=== PATIENT | female | born 1935 | race Caucasian/White ===

== ENCOUNTER 2017-07-29 11:34 | Inpatient (IN) | payer MEDICARE, BC ==
[~2017-07-29] VITALS: Ht 157.5 cm; Wt 59.0 kg
[2017-07-29 12:13] LABS: BASOPHILS % 0.2 % (0.0-2.0); HEMATOCRIT. 38.3 % (36.0-48.0); HEMOGLOBIN. 13.1 g/dL (12.0-16.0); LYMPHOCYTES % 10.5 % (20.0-50.0); MEAN CORPUSCULAR HEMOGLOBIN 33.1 pg (28.0-32.0); MEAN CORPUSCULAR VOLUME 97.1 fL (81.0-99.0); MEAN PLATELET VOLUME 8.5 fl (7.4-10.4); MONOCYTES % 6.7 % (2.0-8.0); NEUTROPHILS % 82.6 % (40.0-76.0); PLATELET 130 x1000/uL (130-400); RED BLOOD CELL COUNT 3.95 mill/uL (4.2-5.4); RED CELL DISTRIBUTION WIDTH 13.9 % (11.6-14.6)
[2017-07-29 12:17] LABS: CHLORIDE 108 mEq/L (98-107)
[2017-07-29 12:18] LABS: INR 1.5; PROTHROMBIN TIME 15.9 sec (9.4-11.6)
[2017-07-29 12:22] LABS: ETHANOL BLOOD < 10 mg/dL
[2017-07-29 12:25] LABS: LDL CHOLESTEROL 43 mg/dL (5-100)
[2017-07-29] MEDS ORDERED: ASPIRIN 325MG EC TABLET PO ONE (13:15)
[2017-07-29 14:11] LABS: CLARITY URINE CLEAR (CLEAR); COLOR URINE YELLOW (YELLOW); KETONES URINE NEGATIVE (NEGATIVE); LEUKOCYTE ESTERASE URINE 2+ (NEGATIVE); NITRITE URINE NEGATIVE (NEGATIVE); OCCULT BLOOD URINE 1+ (NEGATIVE); PH URINE 7.5 (4.5-8.0); PROTEIN URINE 1+ (NEGATIVE); SPECIFIC GRAVITY URINE 1.021 (1.005-1.030)
[2017-07-29 14:33] LABS: *AMPHETAMINES SCREEN URINE NEGATIVE (NEGATIVE); *BARBITURATES SCREEN URINE NEGATIVE (NEGATIVE); *BENZODIAZEPINES SCREEN URINE NEGATIVE (NEGATIVE); *COCAINE SCREEN URINE NEGATIVE (NEGATIVE); METHADONE URINE SCREEN NEGATIVE (NEGATIVE)
[2017-07-29 14:34] LABS: CANNABINOID URINE SCREEN NEGATIVE (NEGATIVE); OPIATES URINE SCREEN NEGATIVE (NEGATIVE); PHENCYCLIDINE URINE SCREEN NEGATIVE (NEGATIVE)
[2017-07-29] MEDS ORDERED: ACETAMINOPHEN 650MG/20.3ML UDC GT PRN (16:15)
[2017-07-29] MEDS ORDERED: NA PHOS,M-B/NA PHOS,DI-BA ENEMA 118ML PR PRN (16:15)
[2017-07-29] MEDS ORDERED: ACETAMINOPHEN 325MG TABLET PO PRN (16:15)
[2017-07-29] MEDS ORDERED: MECLIZINE 12.5MG TABLET PO PRN (16:15)
[2017-07-29] MEDS ORDERED: DOCUSATE SODIUM 100MG CAPSULE PO PRN (16:15)
[2017-07-29] MEDS ORDERED: LORAZEPAM 2MG/ML CPJ IV PRN (16:15)
[2017-07-29] MEDS ORDERED: GUAIFENESIN 200MG/10ML SUGAR FREE UDC PO PRN (16:15)
[2017-07-29] MEDS ORDERED: IPRATROPIUM/ALBUTEROL 0.5-3(2.5)MG/3ML NEB INH PRN (16:15)
[2017-07-29] MEDS ORDERED: DIPHENHYDRAMINE 50MG/ML VIAL IV PRN (16:15)
[2017-07-29] MEDS ORDERED: HYDROCODONE/ACETAMINOPHEN 10/325MG TABLET PO PRN (16:15)
[2017-07-29] MEDS ORDERED: ACETAMINOPHEN 650MG SUPP PR PRN (16:15)
[2017-07-29] MEDS ORDERED: ONDANSETRON HCL 4MG/2ML VIAL IV PRN (16:15)
[2017-07-29] MEDS ORDERED: MAGNESIUM/ALUMINUM HYDROXIDE/SIMETHICONE 30ML UDC PO PRN (16:15)
[2017-07-29] MEDS ORDERED: HYDROCODONE/ACETAMINOPHEN 5/325MG TABLET PO PRN (16:15)
[2017-07-29 22:00] VITALS: BP 118/45
[2017-07-29] MEDS ORDERED: CARB25TA3 PO (22:39)
[2017-07-29] MEDS ORDERED: WARF2.5T47 PO (22:39)
[2017-07-29] MEDS ORDERED: PANT40TA4 PO (22:39)
[2017-07-29] MEDS ORDERED: BENA20TA77 MT (22:39)
[2017-07-29] MEDS ORDERED: AMLO2.5T2 MT (22:39)
[2017-07-29] MEDS ORDERED: RALO60TA13 MT (22:39)
[2017-07-29 23:21] VITALS: BP 118/45
[2017-07-30] VITALS: BP 105/51
[2017-07-30 04:00] VITALS: BP 123/63
[2017-07-30 06:07] LABS: BASOPHILS % 0.7 % (0.0-2.0); EOSINOPHILS % 1.7 % (0.0-5.0); HEMOGLOBIN. 12.3 g/dL (12.0-16.0); LYMPHOCYTES % 30.7 % (20.0-50.0); MEAN CORPUSCULAR HEMOGLOBIN 33.6 pg (28.0-32.0); MEAN PLATELET VOLUME 8.9 fl (7.4-10.4); MONOCYTES % 8.8 % (2.0-8.0); NEUTROPHILS % 58.1 % (40.0-76.0); PLATELET 105 x1000/uL (130-400); RED BLOOD CELL COUNT 3.67 mill/uL (4.2-5.4); RED CELL DISTRIBUTION WIDTH 14.1 % (11.6-14.6)
[2017-07-30 06:42] LABS: CHLORIDE 113 mEq/L (98-107)
[2017-07-30 07:17] LABS: PHOSPHORUS 2.6 mg/dL (2.5-4.9)
[2017-07-30 07:18] LABS: LDL CHOLESTEROL 38 mg/dL (5-100)
[2017-07-30 07:21] LABS: HDL CHOLESTEROL 64 mg/dL (40-59)
[2017-07-30 07:22] LABS: CREATINE KINASE MB FRACTION 8.7 ng/mL (0.5-3.6)
[2017-07-30 07:35] LABS: CREATINE KINASE 1109 IU/L (26-192)
[2017-07-30 08:00] VITALS: BP 123/54
[2017-07-30 08:47] LABS: FOLIC ACID (FOLATE) SERUM > 20.00 ng/mL (>5.38)
[2017-07-30 08:58] LABS: VITAMIN B12 SERUM > 2000.0 pg/mL (211-911)
[2017-07-30 10:03] LABS: AMMONIA 21 uMol/L (<32)
[2017-07-30 12:00] VITALS: BP 133/68
[2017-07-30] MEDS ORDERED: WARFARIN SODIUM 5MG TABLET PO NR (18:00)
[2017-07-30 20:00] VITALS: BP_SYST 124; BP_SYST 129; BP_SYST 136; BP_DIAS 54; BP_DIAS 56; BP_DIAS 63
[2017-07-30 20:15] LABS: INR 1.9; PROTHROMBIN TIME 19.9 sec (9.4-11.6)
[2017-07-30] MEDS: ENOXAPARIN 60MG/0.6ML SYR SUBCUT SCH (21:42)
[2017-07-31] VITALS: BP 127/62
[2017-07-31 04:00] VITALS: BP 126/54
[2017-07-31] MEDS: ENOXAPARIN 60MG/0.6ML SYR SUBCUT SCH (06:41)
[2017-07-31 07:06] LABS: INR 2.3; PROTHROMBIN TIME 23.8 sec (9.4-11.6)
[2017-07-31 07:23] LABS: BASOPHILS % 0.6 % (0.0-2.0); EOSINOPHILS % 2.5 % (0.0-5.0); HEMATOCRIT. 37.3 % (36.0-48.0); HEMOGLOBIN. 12.7 g/dL (12.0-16.0); LYMPHOCYTES % 25.7 % (20.0-50.0); MEAN CORPUSCULAR HEMOGLOBIN 33.4 pg (28.0-32.0); MEAN CORPUSCULAR VOLUME 97.9 fL (81.0-99.0); MEAN PLATELET VOLUME 8.9 fl (7.4-10.4); MONOCYTES % 9.7 % (2.0-8.0); NEUTROPHILS % 61.5 % (40.0-76.0); PLATELET 115 x1000/uL (130-400); RED BLOOD CELL COUNT 3.81 mill/uL (4.2-5.4)
[2017-07-31 07:45] LABS: CHLORIDE 112 mEq/L (98-107)
[2017-07-31 07:59] LABS: PHOSPHORUS 2.2 mg/dL (2.5-4.9)
[2017-07-31 08:00] VITALS: BP 153/53
[2017-07-31 11:00] LABS: INR 2.5; PROTHROMBIN TIME 26.4 sec (9.4-11.6)
[2017-07-31 12:00] VITALS: BP 129/59
[2017-07-31] MEDS ORDERED: WARFARIN SODIUM 2.5MG TABLET PO SCH (18:00)
[2017-07-31] MEDS ORDERED: WARFARIN SODIUM 3MG TABLET PO SCH (18:00)
[2017-07-31] MEDS ORDERED: WARFARIN SODIUM 4MG TABLET PO SCH (18:00)
[2017-07-31 20:16] VITALS: BP 131/56
[2017-08-01 00:10] VITALS: BP 136/55
[2017-08-01 04:50] VITALS: BP 143/70
[2017-08-01 07:01] LABS: BASOPHILS % 0.7 % (0.0-2.0); EOSINOPHILS % 0.8 % (0.0-5.0); HEMATOCRIT. 36.1 % (36.0-48.0); HEMOGLOBIN. 12.5 g/dL (12.0-16.0); INR 2.7; LYMPHOCYTES % 24.7 % (20.0-50.0); MEAN CORPUSCULAR HEMOGLOBIN 33.5 pg (28.0-32.0); MEAN CORPUSCULAR VOLUME 96.9 fL (81.0-99.0); MEAN PLATELET VOLUME 8.7 fl (7.4-10.4); MONOCYTES % 9.6 % (2.0-8.0); NEUTROPHILS % 64.2 % (40.0-76.0); PLATELET 111 x1000/uL (130-400); PROTHROMBIN TIME 28.1 sec (9.4-11.6); RED BLOOD CELL COUNT 3.73 mill/uL (4.2-5.4); RED CELL DISTRIBUTION WIDTH 13.8 % (11.6-14.6)
[2017-08-01 07:28] LABS: CHLORIDE 111 mEq/L (98-107)
[2017-08-01 07:49] LABS: PHOSPHORUS 2.2 mg/dL (2.5-4.9)
[2017-08-01 07:53] LABS: CREATINE KINASE 416 IU/L (26-192)
[2017-08-01 08:00] VITALS: BP 130/62
[2017-08-01 12:00] VITALS: BP 139/67
[2017-08-01 16:45] VITALS: BP 111/51
[2017-08-01] MEDS ORDERED: WARFARIN SODIUM 2.5MG TABLET PO SCH (18:00)
== END 2017-08-01 18:00 | disposition home health service (06) | DRG 64 ==
LOC: ER 11:44 → 6WST 13:16 → EDBEDREQSVC 13:23 → EDBEDREQTM 13:23 → EDBEDREQ 13:23 → ENRESERV 20:03
PROVIDERS: ADMIT Internal Medicine; ATTEND Internal Medicine
DX: I63.9 Cerebral infarction, unspecified (principal); G92 Toxic encephalopathy; G81.91 Hemiplegia, unspecified affecting right dominant side; G20 Parkinson's disease; I48.0 Paroxysmal atrial fibrillation; H53.461 Homonymous bilateral field defects, right side; M62.82 Rhabdomyolysis; E11.9 Type 2 diabetes mellitus without complications; R47.01 Aphasia; I10 Essential (primary) hypertension; R29.810 Facial weakness; R79.1 Abnormal coagulation profile; R26.9 Unspecified abnormalities of gait and mobility; R47.1 Dysarthria and anarthria; W18.39XA Other fall on same level, initial encounter; Z79.01 Long term (current) use of anticoagulants; Y93.89 Activity, other specified; Y92.89 Other specified places as the place of occurrence of the external cause; Y99.8 Other external cause status; Z82.49 Family history of ischemic heart disease and other diseases of the circulatory system; Z95.810 Presence of automatic (implantable) cardiac defibrillator; Z88.0 Allergy status to penicillin
CPT/HCPCS: 36415; 70450; 70544; 70553; 71045; 80048; 80053; 80061; 80076; 80305; 81003; 82140; 82550; 82553; 82607; 82746; 82962; 83036; 83721; 83735; 84100; 84439; 84443; 84481; 84484; 85025; 85610; 92610; 93005; 93306; 93880; 93970; 97162; 97165; 99285; G0482; J1650